=== PATIENT | female | born 1995 | race Caucasian/White ===

== ENCOUNTER 2023-08-29 02:06 | Emergency (ER) | payer SELFPAY ==
[~2023-08-29] VITALS: Ht 172.7 cm; Wt 59.0 kg
[2023-08-29 02:11] VITALS: BP_SYST 109; PULSE 72; RESP 20; TEMP 97.5; O2SAT 98
[2023-08-29] MEDS ORDERED: KETOROLAC TROMETHAMINE 30 MG VIAL IM ONE (02:15)
== END 2023-08-29 02:27 | disposition left against medical advice (07) ==
LOC: SED 02:06
DX: R10.11 Right upper quadrant pain (principal); R10.31 Right lower quadrant pain; R50.9 Fever, unspecified
CPT/HCPCS: 99281; J1885